=== PATIENT | female | born 1960 | race Two or more races ===

== ENCOUNTER 2017-09-12 07:29 | Outpatient (CLI) | payer OTHER | END 2017-09-12 08:48 | disposition home or self-care (01) | LOC: LAB 07:29 | DX: E55.9 Vitamin D deficiency, unspecified (principal); E21.3 Hyperparathyroidism, unspecified; E88.89 Other specified metabolic disorders; M81.8 Other osteoporosis without current pathological fracture; E83.42 Hypomagnesemia; E56.1 Deficiency of vitamin K; M13.88 Other specified arthritis, other site; E78.2 Mixed hyperlipidemia ==

== ENCOUNTER 2022-01-03 07:40 | Outpatient (CLI) | payer OTHER | END 2022-01-03 07:41 | disposition home or self-care (01) | LOC: LAB 07:40 | PROVIDERS: ATTEND Orthopaedic Surgery | DX: E88.9 Metabolic disorder, unspecified (principal); E21.3 Hyperparathyroidism, unspecified; M81.8 Other osteoporosis without current pathological fracture; K52.9 Noninfective gastroenteritis and colitis, unspecified ==

== ENCOUNTER 2023-05-21 08:32 | Outpatient (CLI) | payer OTHER ==
[2023-05-21 10:26] LABS: MAGNESIUM 2.2 mg/dL (1.8-2.4); PHOSPHOROUS 3.8 mg/dL (2.5-4.9)
[2023-05-22 14:07] LABS: CALCIUM IONIZED 4.9 mg/dL (4.5-5.6)
== END 2023-05-21 08:33 | disposition home or self-care (01) ==
LOC: LAB 08:32
PROVIDERS: ATTEND Orthopaedic Surgery
DX: E55.9 Vitamin D deficiency, unspecified (principal); M85.9 Disorder of bone density and structure, unspecified; E78.00 Pure hypercholesterolemia, unspecified; E56.1 Deficiency of vitamin K; E21.3 Hyperparathyroidism, unspecified; E88.89 Other specified metabolic disorders; M81.8 Other osteoporosis without current pathological fracture

== ENCOUNTER 2023-06-07 11:07 | Emergency (ER) | payer OTHER ==
[~2023-06-07] VITALS: Ht 162.6 cm; Wt 57.6 kg
[2023-06-07] MEDS ORDERED: CLONAZEPAM0.5 MG PO (11:42)
[2023-06-07] MEDS ORDERED: VITAMIN D3125 MC3 PO (11:43)
[2023-06-07] MEDS ORDERED: SYNTHROID50 MCG PO (11:43)
[2023-06-07 13:25] LABS: HEMATOCRIT 39.5 % (36.0-45.00); HEMOGLOBIN 13.5 g/dL (12.0-15.00); MEAN CELL VOLUME 92.9 fL (80.00-100.00); MEAN CORPUSCULAR HEMOGLOBIN 31.8 pg (27.00-32.0); MEAN CORPUSCULAR HGB CONC 34.2 g/dl (32.0-36.0); PLATELET COUNT 337 K/uL (150-450); RED BLOOD COUNT 4.25 M/uL (4.00-6.00); RED CELL DISTRIBUTION WIDTH 12.9 % (11.5-14.5)
[2023-06-07 13:52] LABS: CREATININE SERUM 0.61 mg/dL (0.55-1.02); GFR 99.38; POTASSIUM 3.78 mEq/L (3.5-5.1)
== END 2023-06-07 15:07 | disposition home or self-care (01) ==
LOC: ER 11:08
PROVIDERS: General Practice
DX: R04.2 Hemoptysis (principal); Z88.2 Allergy status to sulfonamides